=== PATIENT | male | born 1945 | race Caucasian/White ===

== ENCOUNTER 2019-12-26 09:50 | Observation (INO) | payer MEDICARE, OTHER ==
--- NOTE | 2019-12-26 10:17 | ED ---
Chest Pain HPI - General Chief Complaint: Chest Pain Stated Complaint: Chest Pain Time Seen by Provider: 12/26/19 10:02 Source: patient, RN/MD, EMS Mode of arrival: EMS Limitations: no limitations - History of Present Illness Initial Comments: 73-year-old male with history of hypertension, diabetes controlled with metformin, angina, brief smoking history for < 5 years presenting to the with recent catheterization at the [facility] in June that he described as clean presents emergency department for chief complaint of chest pain that has since subsided that began at 6 AM. Patient states this exam he woke up with chest pain he states it was a sharp constant pain in the upper chest diffusely. He states at that time there is associated shortness of breath. Non currently. Denies leg swelling or history of DVT or pulmonary embolism, history of prostate cancer in remission. Denies pain with deep inspiration. Patient states he had some jaw pain. No arm pain, no back pain no abdominal pain. Denies vomiting, nausea. Patient states when the pain persisted he took a nitroglycerin tablet and the pain went away and has not returned. But he has a slight headache. Patient has a slight headache at this time no other complaints. Patient appears well on arrival, he no diaphoretic,, (-) levign sign without distress. Given 324 of aspirin in EMS prior to arrival. Patient has retinal detachment surgery: 1 week ago - Related Data Home Medications Medication Instructions Recorded Confirmed Albuterol Inhaler [Ventolin Hfa 1 - 2 puff INHALATION RT-TID PRN 12/26/19 12/26/19 Inhaler] Ascorbic Acid [Vitamin C] 500 mg PO DAILY 12/26/19 12/26/19 Carbidopa-Levodopa 25-100 mg 1 tab PO BID 12/26/19 12/26/19 [Sinemet 25-100] Cholecalciferol [Vitamin D3 (25 5,000 unit PO DAILY 12/26/19 12/26/19 Mcg = 1000 Iu)] Cyanocobalamin (Vitamin B-12) 1,000 mcg PO DAILY 12/26/19 12/26/19 [Vitamin B-12] Diflorasone Diacetate [Psorcon] 1 applic TOPICAL BID 12/26/19 12/26/19 Econazole Nitrate [Econazole 1 applic TOPICAL DAILY 12/26/19 12/26/19 Nitrate 1%] Ferrous Gluconate 240 mg PO DAILY 12/26/19 12/26/19 Guaifenesin/Dextromethorphan 1 tab PO Q6H PRN 12/26/19 12/26/19 [Coricidin Hbp Softgel] Ibuprofen [Motrin] 800 mg PO Q8H PRN 12/26/19 12/26/19 Isosorbide Mononitrate ER [Imdur] 60 mg PO DAILY 12/26/19 12/26/19 Loperamide HCl [Imodium A-D] 2 mg PO DAILY PRN 12/26/19 12/26/19 Loperamide [Imodium] 1 mg PO DAILY 12/26/19 12/26/19 Losartan-Hctz 50-12.5 mg [Hyzaar 1 tab PO DAILY 12/26/19 12/26/19 50-12.5] Nitroglycerin Sl Tabs [Nitrostat] 0.4 mg SUBLINGUAL Q5M PRN 12/26/19 12/26/19 Pantoprazole Sodium [Protonix] 40 mg PO DAILY 12/26/19 12/26/19 Rosuvastatin Calcium [Crestor] 20 mg PO DAILY 12/26/19 12/26/19 Tamsulosin [Flomax] 0.4 mg PO DAILY 12/26/19 12/26/19 Turmeric Root Extract [Turmeric] 500 mg PO DAILY 12/26/19 12/26/19 Ubidecarenone [Co Q-10] 100 mg PO DAILY 12/26/19 12/26/19 metFORMIN HCL [Glucophage] 500 mg PO BID 12/26/19 12/26/19 prednisoLONE ACETATE [Pred Forte 1 drop RIGHT EYE TID 12/26/19 12/26/19 1%] Allergies Allergy/AdvReac Type Severity Reaction Status Date / Time atorvastatin Allergy Rash/Hives Verified 12/26/19 11:04 Iodinated Contrast Media Allergy Rash/Hives Verified 12/26/19 11:04 Review of Systems ROS Statement: Those systems with pertinent positive or pertinent negative responses have been documented in the HPI. ROS Other: All systems not noted in ROS Statement are negative. Past Medical History Past Medical History: Asthma, Diabetes Mellitus, GERD/Reflux, Hyperlipidemia, Hypertension History of Any Multi-Drug Resistant Organisms: None Reported Past Surgical History: Cholecystectomy, Heart Catheterization, Hernia Repair Additional Past Surgical History / Comment(s): R eye surgery Past Psychological History: No Psychological Hx Reported Smoking Status: Former smoker Past Alcohol Use History: Occasional Past Drug Use History: None Reported - Past Family History Father Additional Family Medical History / Comment(s): Father lived to be 95 yrs. old. He of an infection of some sort. Mother Family Medical History: Chest Pain / Angina Additional Family Medical History / Comment(s): Migraines. She of multiple organ failure at the age of 89yrs. General Exam - General Exam Comments Initial Comments: General: The patient is awake and alert, in no distress, and does not appear acutely ill. Eye: +3 mm pupils are equal, round and reactive to light, extra-ocular movements are intact. No nystagmus. There is normal conjunctiva bilaterally. No signs of icterus. Ears, nose, mouth and throat: There are moist mucous membranes and no oral lesions. Neck: The neck is supple, there is no tenderness or JVD. No nuchal rigidity Cardiovascular: There is a regular rate and rhythm. No murmur, rub or gallop is appreciated. Respiratory: Lungs are clear to auscultation, respirations are non-labored, breath sounds are equal. No wheezes, stridor, rales, or rhonchi. Gastrointestinal: Soft, non-distended, non-tender abdomen without masses or organomegaly noted. There is no rebound or guarding present. No pulsatile masses Musculoskeletal: Normal ROM, no tenderness. Strength 5/5 of the UE and LE b/l. Sensation intact of the UE and LE b/l. Radial and DP pulses equal bilaterally 2+. Neurological: A&O x 3. CN II-XII intact, There are no obvious motor or sensory deficits. Coordination appears grossly intact. Speech is normal. Skin: Skin is warm and dry and no rashes or lesions are noted. No lower extremity edema pain to palpation Psychiatric: Cooperative, appropriate mood & affect, normal judgment. Limitations: no limitations Course Vital Signs 12/26/19 12/26/19 12/26/19 09:55 13:13 14:00 Temperature 98 F 98.3 F Pulse Rate 57 L 65 65 Respiratory 16 18 18 Rate Blood Pressure 139/84 122/77 120/75 O2 Sat by Pulse 100 98 96 Oximetry Chest Pain MDM - MDM 73-year-old male presenting today for chief complaint of chest pain. Hx of cath "clean" per family in june. Patient EKG wnl. Headache after nitro this AM. Pt has no focal neurological deficits. However family was demanding,yelling for a CT brain. CT brain (-). Pain controlled with 1 dose of morphine. Patient HR lower aspect of normal. Held nitro given concern for a possibility of inferior NM. No ST elevation or depressions on 2 EKGs. Non specific changes. Patient CTA for aneurysm or pulmonary embolism.. Patient will be admitted for CP r/o. Patient remains hold in ER, but is under care of accepting IM physician who saw patient in ER. Dr Alexander agreeable to care plan. Course: pt troponin +, he is under IM care, I personally spoke with Dr. Benjamin who states he will contact cardiology and initiate heparin. Disposition Clinical Impression: Chest pain, Jaw pain, Dyspnea Disposition: ADMITTED IP TO THIS HOSP Condition: Stable Is patient prescribed a controlled substance at d/c from ED?: No Time of Disposition: 11:19 Decision to Admit Reason: Admit from EC Decision Date: 12/26/19 Decision Time: 11:19
[2019-12-26 10:21] LABS: Basophils % (A) 0 %; Eosinophils # (A) 0.2 k/uL (0-0.7); Eosinophils % (A) 2 %; HCT 39.3 % (39.0-53.0); HGB 12.5 gm/dL (13.0-17.5); Lymphocytes # (A) 1.2 k/uL (1.0-4.8); Lymphocytes % (A) 14 %; MCH 28.8 pg (25.0-35.0); MCHC 31.8 g/dL (31.0-37.0); MCV 90.7 fL (80.0-100.0); Mean Platelet Volume 7.3; Monocytes # (A) 0.6 k/uL (0-1.0); Monocytes % (A) 7 %; Neutrophils # (A) 6.4 k/uL (1.3-7.7); Neutrophils % (A) 76 %; Platelet Count 274 k/uL (150-450); RBC 4.33 m/uL (4.30-5.90); RDW 13.1 % (11.5-15.5); WBC 8.5 k/uL (3.8-10.6)
[2019-12-26 10:30] LABS: INR 0.9 (<1.2); Partial Thromboplastin Time 23.3 sec (22.0-30.0); Prothrombin Time 9.5 sec (9.0-12.0)
[2019-12-26 10:33] LABS: Calcium 9.4 mg/dL (8.4-10.2); Magnesium 1.5 mg/dL (1.6-2.3); Potassium 4.3 mmol/L (3.5-5.1); Total Bilirubin 0.3 mg/dL (0.2-1.3); Total Protein 6.4 g/dL (6.3-8.2)
--- NOTE | 2019-12-26 11:02 | XR ---
EXAMINATION TYPE: XR chest 2V DATE OF EXAM: 12/26/2019 COMPARISON: NONE HISTORY: Shortness of breath TECHNIQUE: Frontal and lateral views of the chest are obtained. FINDINGS: Scattered senescent parenchymal changes noted. Hyperinflation compatible with COPD. No evidence for infiltrate. No evidence for atelectasis. Heart size is stable. Mediastinal structures are stable and grossly unremarkable. No evidence for hilar prominence. Degenerative changes dorsal spine. IMPRESSION: 1. No evidence for acute pulmonary disease.
[2019-12-26] MEDS ORDERED: NITROGLYCERIN SL TABS 0.4 MG TAB SUBLINGUAL PRN ×2 (11:17→13:06)
[2019-12-26] MEDS ORDERED: MORPHINE SULFATE 2 MG/ML SYRINGE IVP PRN (11:30)
[2019-12-26] MEDS ORDERED: LORazepam 2 MG/ML INJ IV STA (11:33)
[2019-12-26] MEDS ORDERED: methylPREDNISolone SOD SUCCI 125 MG/2 ML VIAL IV STA (11:41)
[2019-12-26] MEDS ORDERED: FAMOTIDINE 20 MG/2 ML VIAL IV STA (11:41)
[2019-12-26] MEDS ORDERED: diphenhydrAMINE 50 MG/ML 1 ML VIAL IVP STA (11:41)
--- NOTE | 2019-12-26 12:03 | CT ---
EXAMINATION TYPE: CT brain wo con DATE OF EXAM: 12/26/2019 COMPARISON: None HISTORY: severe [place] CT DLP: 1099.[address] of the brain was performed The ventricles, basal cisterns and sulci overlying the cerebral convexities demonstrate mild enlargem ent. There is no evidence for intracranial hemorrhage or sulcal effacement. There is decreased attenuation about the periventricular white matter and deep white matter of both c erebral hemispheres, compatible with chronic small vessel ischemia. Differential diagnosis does inclu de demyelination. No mass effects are seen.No midline shift. Osseous calvarium is intact. If symptoms persist consider MRI. IMPRESSION: 1. Age related atrophic and chronic small vessel ischemic change without acute intracranial process s een at this time.
--- NOTE | 2019-12-26 12:17 | CT ---
EXAMINATION TYPE: CT angio chest DATE OF EXAM: 12/26/2019 COMPARISON: None HISTORY: cough, chest pain, SOB CT DLP: 397.3 mGycm CONTRAST: CT chest with contrast and 3D reconstruction with MIP imaging is performed with IV Contrast, patient injected with 63 mL of Isovue 370. Contrast-enhanced CT of the chest was performed through the course of the pulmonary arteries with vern g and mediastinal window settings submitted. 3D reconstruction with MIP imaging was also performed. PULMONARY ARTERIES: The pulmonary arteries and their major tributaries are patent. I do not see alix dence for sizable filling defect to suggest pulmonary embolic process. LUNGS: The lungs are clear and free of infiltrate. No evidence for atelectasis. No pulmonary nodule or mass is detected. No pleural effusion. MEDIASTINUM: Thoracic aorta is of normal caliber,however, evaluation is limited given timing of the contrast bolus. If there is concern for thoracic aortic pathology consider DONNIE. Correlate clinicall y . The heart is not enlarged. No evidence for mediastinal mass. No mediastinal lymph nodes greater than 1cm. HILAR STRUCTURES: No evidence for mass. No hilar lymph nodes greater than 1 cm. UPPER ABDOMEN: No significant abnormality is seen. IMPRESSION: 1. No evidence for Pulmonary embolism at this time.
[2019-12-26] MEDS ORDERED: guaiFENesin-DM 100-10MG/5ML 10 ML CUP PO PRN (13:06)
[2019-12-26] MEDS ORDERED: ALBUTEROL NEBULIZED 2.5 MG/3 ML INHALATION PRN (13:06)
[2019-12-26] MEDS: MAGNESIUM SULFATE-D5W PMX 1 GM in DEXTROSE/WATER 1 100ML.BAG IVPB SCH ×2 (13:29→14:23)
[2019-12-26] MEDS ORDERED: traMADol 50 MG TAB PO PRN (15:03)
--- NOTE | 2019-12-26 15:06 | P.HPIM ---
History of Present Illness 73-year-old male with known history of coronary disease and recent cardiac catheterization and stenting in [facility] month of June came in with compensative chest pain and headache. I'm unable to get much of the history f rom the patient as patient just received the Ativan and excessively drowsy goes back to sleep even before he can answer one question for me. Patient states he was having headache since yesterday and started having chest pain today because of which she came he came to ER. EKG did not show any acute ST-T wave changes. Set of troponin is negative second one is mildly elevated to 0.05, patient is b eing admitted and cardiology was consulted for rule out acute medicine syndromes and unstable angina. Patient doesn't have any fever chills was having some cough without any sputum production. Patient chest pain apparently asked for the ER physician is nonpruritic. Review of Systems REVIEW OF SYSTEMS: CONSTITUTIONAL: No fever, no malaise, no fatigue. HEENT: No recent visual problems or hearing problems. Denied any sore throat. CARDIOVASCULAR: No orthopnea, PND, no palpitations, no syncope. PULMONARY: No shortness of breath, no cough, no hemoptysis. GASTROINTESTINAL: No diarrhea, no nausea, no vomiting, no abdominal pain. NEUROLOGICAL: No headaches, no weakness, no numbness. HEMATOLOGICAL: Denies any bleeding or petechiae. GENITOURINARY: Denies any burning micturition, frequency, or urgency. MUSCULOSKELETAL/RHEUMATOLOGICAL: Denies any joint pain, swelling, or any muscle pain. ENDOCRINE: Denies any polyuria or polydipsia. The rest of the 14-point review of systems is negative. Past Medical History Past Medical History: Asthma, Diabetes Mellitus, GERD/Reflux, Hyperlipidemia, Hypertension Additional Past Medical History / Comment(s): IDDM type II, neuropathy bilateral feet, R eye retinal detachement with surgery 2 weeks ago-sleeps with eye guard in place, bronchitis, diverticular disease with lower GI bleeds/surgery, parkingosns, prostate cancer tx with proton therapy, BPH, iron anemia, arthritis bilateral knees. History of Any Multi-Drug Resistant Organisms: None Reported Past Surgical History: Cholecystectomy, Heart Catheterization, Hernia Repair Additional Past Surgical History / Comment(s): R eye surgery Past Anesthesia/Blood Transfusion Reactions: No Reported Reaction Additional Past Anesthesia/Blood Transfusion Reaction / Comment(s): Pt has received blood in past without reaction. Past Psychological History: No Psychological Hx Reported Smoking Status: Former smoker Past Alcohol Use History: Occasional Past Drug Use History: None Reported - Past Family History Father Additional Family Medical History / Comment(s): Father lived to be 95 yrs. old. He of an infection of some sort. Mother Family Medical History: Chest Pain / Angina Additional Family Medical History / Comment(s): Migraines. She of multiple organ failure at the age of 89yrs. Medications and Allergies Home Medications Medication Instructions Recorded Confirmed Type Albuterol Inhaler [Ventolin Hfa 1 - 2 puff INHALATION RT-TID PRN 12/26/19 12/26/19 History Inhaler] Ascorbic Acid [Vitamin C] 500 mg PO DAILY 12/26/19 12/26/19 History Carbidopa-Levodopa 25-100 mg 1 tab PO BID 12/26/19 12/26/19 History [Sinemet 25-100] Cholecalciferol [Vitamin D3 (25 5,000 unit PO DAILY 12/26/19 12/26/19 History Mcg = 1000 Iu)] Cyanocobalamin (Vitamin B-12) 1,000 mcg PO DAILY 12/26/19 12/26/19 History [Vitamin B-12] Diflorasone Diacetate [Psorcon] 1 applic TOPICAL BID 12/26/19 12/26/19 History Econazole Nitrate [Econazole 1 applic TOPICAL DAILY 12/26/19 12/26/19 History Nitrate 1%] Ferrous Gluconate 240 mg PO DAILY 12/26/19 12/26/19 History Guaifenesin/Dextromethorphan 1 tab PO Q6H PRN 12/26/19 12/26/19 History [Coricidin Hbp Softgel] Ibuprofen [Motrin] 800 mg PO Q8H PRN 12/26/19 12/26/19 History Isosorbide Mononitrate ER [Imdur] 60 mg PO DAILY 12/26/19 12/26/19 History Loperamide HCl [Imodium A-D] 2 mg PO DAILY PRN 12/26/19 12/26/19 History Loperamide [Imodium] 1 mg PO DAILY 12/26/19 12/26/19 History Losartan-Hctz 50-12.5 mg [Hyzaar 1 tab PO DAILY 12/26/19 12/26/19 History 50-12.5] Nitroglycerin Sl Tabs [Nitrostat] 0.4 mg SUBLINGUAL Q5M PRN 12/26/19 12/26/19 History Pantoprazole Sodium [Protonix] 40 mg PO DAILY 12/26/19 12/26/19 History Rosuvastatin Calcium [Crestor] 20 mg PO DAILY 12/26/19 12/26/19 History Tamsulosin [Flomax] 0.4 mg PO DAILY 12/26/19 12/26/19 History Turmeric Root Extract [Turmeric] 500 mg PO DAILY 12/26/19 12/26/19 History Ubidecarenone [Co Q-10] 100 mg PO DAILY 12/26/19 12/26/19 History metFORMIN HCL [Glucophage] 500 mg PO BID 12/26/19 12/26/19 History prednisoLONE ACETATE [Pred Forte 1 drop RIGHT EYE TID 12/26/19 12/26/19 History 1%] Allergies Allergy/AdvReac Type Severity Reaction Status Date / Time atorvastatin Allergy Rash/Hives Verified 12/26/19 11:04 Iodinated Contrast Media Allergy Rash/Hives Verified 12/26/19 11:04 Physical Exam Vitals: Vital Signs Temp Pulse Pulse Resp BP BP Pulse Ox 12/26/19 14:54 97.5 F L 62 16 127/74 96 12/26/19 14:00 98.3 F 65 18 120/75 96 12/26/19 13:13 65 18 122/77 98 12/26/19 09:55 98 F 57 L 16 139/84 100 Intake and Output 12/26/19 12/26/19 12/26/19 06:59 14:59 22:59 Other: Weight 86.183 kg PHYSICAL EXAMINATION: GENERAL: The patient is excessively drowsy but oriented he is drowsy because of Ativan he received, not in any acute distress. Well developed, well nourished. HEENT: Pupils are round and equally reacting to light. EOMI. No scleral icterus. No conjunctival pallor. Normocephalic, atraumatic. No pharyngeal erythema. No thyromegaly. CARDIOVASCULAR: S1 and S2 present. No murmurs, rubs, or gallops. PULMONARY: Chest is clear to auscultation, no wheezing or crackles. ABDOMEN: Soft, nontender, nondistended, normoactive bowel sounds. No palpable organomegaly. MUSCULOSKELETAL: No joint swelling or deformity. EXTREMITIES: No cyanosis, clubbing, or pedal edema. NEUROLOGICAL: Gross neurological examination did not reveal any focal deficits. SKIN: No rashes. Results CBC & Chem 7: 12/26/19 10:12 12/26/19 10:12 Labs: Abnormal Lab Results - Last 24 Hours (Table) 12/26/19 12/26/19 12/26/19 Range/Units 10:12 10:12 12:44 Hgb 12.5 L (13.0-17.5) gm/dL BUN 25 H (9-20) mg/dL Glucose 108 H (74-99) mg/dL Magnesium 1.5 L (1.6-2.3) mg/dL Troponin I 0.058 H* (0.000-0.034) ng/mL Thrombosis Risk Factor Assmnt - Choose All That Apply Any of the Below Risk Factors Present?: Yes Each Factor Represents 1 point: Obesity (BMI >25) Other Risk Factors: Yes Each Risk Factor Represents 2 Points: Age 61-74 years, Malignancy Other congenital or acquired thrombophilia - If yes, enter type in comment: No Thrombosis Risk Factor Assessment Total Risk Factor Score: 5 Thrombosis Risk Factor Assessment Level: High Risk Assessment and Plan Plan: Chest pain: Mostly atypical and we will rule out acute coronary syndromes and unstable angina repeat one more set of troponin depending on that cardiology will decide whether patient will stress test or a cardiac catheterization. -Mild acute renal failure hold off hydrochlorothiazide repeat basic metabolic profile -Hypomagnesemia magnesium will be replaced -Type 2 diabetes mellitus next and heparin gases. Infectious is -Hypertension -Hyperlipidemia -History of coronary artery disease with recent stents For above-mentioned chronic medical problems patient will be resumed on appropriate home medications.
[2019-12-26] MEDS: prednisoLONE ACETATE 1% OPHTH DROPS 5 ML BTL RIGHT EYE SCH ×2 (16:13→21:11)
[2019-12-26 16:40] LABS: Glucose,Whole Blood 128 mg/dL (75-99)
[2019-12-26] MEDS ORDERED: HEPARIN SODIUM,PORCINE 5,000 UNIT/ML 1 ML VIAL IV ONE (18:00)
[2019-12-26] MEDS ORDERED: HEPARIN SOD,PORK IN 0.45% NACL 25,000 UNIT in 0.45% NACL 1 250ML.BAG IV SCH (18:00)
[2019-12-26] MEDS ORDERED: HEPARIN SODIUM,PORCINE 5,000 UNIT/ML 1 ML VIAL IV PRN (18:00)
[2019-12-26 19:52] LABS: Basophils % (A) 0 %; Eosinophils % (A) 0 %; HCT 42.1 % (39.0-53.0); HGB 13.2 gm/dL (13.0-17.5); Lymphocytes # (A) 0.6 k/uL (1.0-4.8); Lymphocytes % (A) 5 %; MCH 29.1 pg (25.0-35.0); MCHC 31.4 g/dL (31.0-37.0); MCV 92.5 fL (80.0-100.0); Mean Platelet Volume 7.9; Monocytes # (A) 0.1 k/uL (0-1.0); Monocytes % (A) 1 %; Neutrophils # (A) 10.1 k/uL (1.3-7.7); Neutrophils % (A) 93 %; Platelet Count 308 k/uL (150-450); RBC 4.56 m/uL (4.30-5.90); RDW 13.2 % (11.5-15.5); WBC 10.9 k/uL (3.8-10.6)
[2019-12-26 20:14] LABS: INR 0.9 (<1.2); Partial Thromboplastin Time 24.1 sec (22.0-30.0); Prothrombin Time 9.7 sec (9.0-12.0)
[2019-12-26 20:14] LABS: Glucose,Whole Blood 181 mg/dL (75-99)
[2019-12-26] MEDS: CLOBETASOL PROP 0.05% CR 15GM TOPICAL SCH (21:11)
[2019-12-26] MEDS: CARBIDOPA-LEVODOPA 25-100 MG 1 EACH TAB PO SCH (21:11)
[2019-12-26] MEDS: metFORMIN 500 MG TAB PO SCH (21:11)
[2019-12-26] MEDS: LOPERAMIDE 2 MG CAP PO PRN (22:19)
[2019-12-27] MEDS: PANTOPRAZOLE 40 MG TABLET PO SCH (06:15)
[2019-12-27 06:20] LABS: Glucose,Whole Blood 128 mg/dL (75-99)
[2019-12-27 08:19] LABS: Basophils % (A) 0 %; Eosinophils % (A) 0 %; HCT 42.8 % (39.0-53.0); HGB 13.4 gm/dL (13.0-17.5); Lymphocytes # (A) 1.1 k/uL (1.0-4.8); Lymphocytes % (A) 6 %; MCH 28.9 pg (25.0-35.0); MCHC 31.3 g/dL (31.0-37.0); MCV 92.4 fL (80.0-100.0); Mean Platelet Volume 7.5; Monocytes # (A) 0.6 k/uL (0-1.0); Monocytes % (A) 3 %; Neutrophils # (A) 17.6 k/uL (1.3-7.7); Neutrophils % (A) 90 %; Platelet Count 343 k/uL (150-450); RBC 4.63 m/uL (4.30-5.90); RDW 13.2 % (11.5-15.5); WBC 19.4 k/uL (3.8-10.6)
[2019-12-27] MEDS ORDERED: LOSARTAN-HCTZ 50-12.5 MG 1 EACH TAB PO SCH (09:00)
[2019-12-27 09:05] LABS: Calcium 9.7 mg/dL (8.4-10.2); Magnesium 1.7 mg/dL (1.6-2.3); Potassium 4.5 mmol/L (3.5-5.1)
[2019-12-27] MEDS: TAMSULOSIN 0.4 MG CAP.ER.24H PO SCH (09:48)
[2019-12-27] MEDS: ASPIRIN 325 MG TAB PO SCH (09:48)
[2019-12-27] MEDS: ISOSORBIDE MONONITRATE ER 60 MG TAB.ER.24H PO SCH (09:48)
[2019-12-27] MEDS: CARBIDOPA-LEVODOPA 25-100 MG 1 EACH TAB PO SCH ×2 (09:49→20:50)
[2019-12-27] MEDS: LOSARTAN 50 MG TAB PO SCH (09:49)
[2019-12-27] MEDS: CLOBETASOL PROP 0.05% CR 15GM TOPICAL SCH ×2 (09:51→20:48)
[2019-12-27] MEDS: metFORMIN 500 MG TAB PO SCH (09:51)
[2019-12-27] MEDS: CLOTRIMAZOLE 1% CREAM 15 GM TUBE TOPICAL SCH (09:52)
[2019-12-27] MEDS: prednisoLONE ACETATE 1% OPHTH DROPS 5 ML BTL RIGHT EYE SCH ×3 (09:52→20:50)
--- NOTE | 2019-12-27 10:02 | P.CRDCN ---
History of Present Illness Consult date: 12/27/19 Chief complaint: Chest pain History of present illness: This is a very pleasant 73-year-old gentleman who does not follow-up with any nuclear medical tech here in this area but he does have a nuclear medical tech at [facility] with a past medical history significant for hypertension and dyslipidemia and also history of TIA in the past resented to the hospital complaining of chest discomfort. The patient underwent a heart catheterization according to him in July 2019 at [facility] and he was diagnosed was mild nonobstructive coronary artery disease according to him. He was in his usual state of health until yesterday when he was sleeping and woke up complaining of chest discomfort. He did have a total of 2 episodes of chest discomfort with about 20 minutes in between. He described the discomfort as a tightness across the chest associated with pain in the back of the neck as well as associated with cold sweats. Each episode lasted about 15 minutes. Currently he is chest pain-free. He was admitted to the hospital and started on IV heparin. The EKG showed sinus rhythm with nonspecific ST or T-wave abnormalities. The cardiac enzymes were checked and came in to be abnormal and consistent with acute coronary event. I had a long discussion with him as well as his and I advised the patient to undergo a heart catheterization for further evaluation and rule out severe underlying coronary artery disease. The patient and his would like to think about it and get back to me. Meanwhile I am going to obtain an echocardiogram was Doppler. Also I'm going to start the patient on metoprolol at 12.5 mg by mouth twice a day to control the blood pressure as well as the heart rate. We'll continue following up with the patient Past Medical History Past Medical History: Asthma, Diabetes Mellitus, GERD/Reflux, Hyperlipidemia, Hypertension Additional Past Medical History / Comment(s): IDDM type II, neuropathy bilateral feet, R eye retinal detachement with surgery 2 weeks ago-sleeps with eye guard in place, bronchitis, diverticular disease with lower GI bleeds/surgery, parkingosns, prostate cancer tx with proton therapy, BPH, iron anemia, arthritis bilateral knees. History of Any Multi-Drug Resistant Organisms: None Reported Past Surgical History: Cholecystectomy, Heart Catheterization, Hernia Repair Additional Past Surgical History / Comment(s): R eye surgery Past Anesthesia/Blood Transfusion Reactions: No Reported Reaction Additional Past Anesthesia/Blood Transfusion Reaction / Comment(s): Pt has received blood in past without reaction. Past Psychological History: No Psychological Hx Reported Smoking Status: Former smoker Past Alcohol Use History: Occasional Past Drug Use History: None Reported - Past Family History Father Additional Family Medical History / Comment(s): Father lived to be 95 yrs. old. He of an infection of some sort. Mother Family Medical History: Chest Pain / Angina Additional Family Medical History / Comment(s): Migraines. She of multiple organ failure at the age of 89yrs. Medications and Allergies Home Medications Medication Instructions Recorded Confirmed Type Albuterol Inhaler [Ventolin Hfa 1 - 2 puff INHALATION RT-TID PRN 12/26/19 12/26/19 History Inhaler] Ascorbic Acid [Vitamin C] 500 mg PO DAILY 12/26/19 12/26/19 History Carbidopa-Levodopa 25-100 mg 1 tab PO BID 12/26/19 12/26/19 History [Sinemet 25-100] Cholecalciferol [Vitamin D3 (25 5,000 unit PO DAILY 12/26/19 12/26/19 History Mcg = 1000 Iu)] Cyanocobalamin (Vitamin B-12) 1,000 mcg PO DAILY 12/26/19 12/26/19 History [Vitamin B-12] Diflorasone Diacetate [Psorcon] 1 applic TOPICAL BID 12/26/19 12/26/19 History Econazole Nitrate [Econazole 1 applic TOPICAL DAILY 12/26/19 12/26/19 History Nitrate 1%] Ferrous Gluconate 240 mg PO DAILY 12/26/19 12/26/19 History Guaifenesin/Dextromethorphan 1 tab PO Q6H PRN 12/26/19 12/26/19 History [Coricidin Hbp Softgel] Ibuprofen [Motrin] 800 mg PO Q8H PRN 12/26/19 12/26/19 History Isosorbide Mononitrate ER [Imdur] 60 mg PO DAILY 12/26/19 12/26/19 History Loperamide HCl [Imodium A-D] 2 mg PO DAILY PRN 12/26/19 12/26/19 History Loperamide [Imodium] 1 mg PO DAILY 12/26/19 12/26/19 History Losartan-Hctz 50-12.5 mg [Hyzaar 1 tab PO DAILY 12/26/19 12/26/19 History 50-12.5] Nitroglycerin Sl Tabs [Nitrostat] 0.4 mg SUBLINGUAL Q5M PRN 12/26/19 12/26/19 History Pantoprazole Sodium [Protonix] 40 mg PO DAILY 12/26/19 12/26/19 History Rosuvastatin Calcium [Crestor] 20 mg PO DAILY 12/26/19 12/26/19 History Tamsulosin [Flomax] 0.4 mg PO DAILY 12/26/19 12/26/19 History Turmeric Root Extract [Turmeric] 500 mg PO DAILY 12/26/19 12/26/19 History Ubidecarenone [Co Q-10] 100 mg PO DAILY 12/26/19 12/26/19 History metFORMIN HCL [Glucophage] 500 mg PO BID 12/26/19 12/26/19 History prednisoLONE ACETATE [Pred Forte 1 drop RIGHT EYE TID 12/26/19 12/26/19 History 1%] Allergies Allergy/AdvReac Type Severity Reaction Status Date / Time atorvastatin Allergy Rash/Hives Verified 12/26/19 11:04 Iodinated Contrast Media Allergy Rash/Hives Verified 12/26/19 11:04 Physical Exam Vitals: Vital Signs Temp Pulse Pulse Resp BP BP Pulse Ox 12/27/19 08:48 20 12/27/19 08:15 97.4 F L 74 20 156/68 100 12/27/19 03:00 97.4 F L 69 18 156/78 96 12/26/19 21:00 98 F 71 16 124/75 95 12/26/19 15:26 96 12/26/19 15:00 16 12/26/19 14:54 97.5 F L 62 16 127/74 96 12/26/19 14:00 98.3 F 65 18 120/75 96 12/26/19 13:13 65 18 122/77 98 Intake and Output 12/26/19 12/27/19 12/27/19 22:59 06:59 14:59 Intake Total 63.981 92.596 Balance 63.981 92.596 Intake: Intake, IV Titration 63.981 92.596 Amount Heparin Sod,Pork in 0.45% 63.981 92.596 NaCl 25,000 unit In 0.45 % NaCl 1 250ml.bag @ 11.6 UNITS/KG/HR 9.997 mls/hr IV .Q24H [facility] Rx#: [id number] Other: Voiding Method Toilet Toilet Toilet # Voids 1 2 - Constitutional General appearance: no acute distress - Cardiovascular Rhythm: regular Heart sounds: normal: S1, S2 Results 12/27/19 08:01 12/27/19 08:01 Cardiac Enzymes 12/26/19 12/26/19 12/26/19 Range/Units 10:12 10:12 12:44 AST 24 (17-59) U/L Troponin I <0.012 0.058 H* (0.000-0.034) ng/mL 12/26/19 Range/Units 16:24 AST (17-59) U/L Troponin I 0.345 H* (0.000-0.034) ng/mL Coagulation 12/26/19 12/26/19 12/27/19 Range/Units 10:12 18:15 00:25 PT 9.5 9.7 (9.0-12.0) sec APTT 23.3 24.1 39.6 H (22.0-30.0) sec 12/27/19 Range/Units 08:01 PT (9.0-12.0) sec APTT 42.7 H (22.0-30.0) sec Lipids 12/27/19 Range/Units 08:01 Triglycerides 93 (<150) mg/dL Cholesterol 128 (<200) mg/dL HDL Cholesterol 54 (40-60) mg/dL CBC 12/26/19 12/26/19 12/27/19 Range/Units 10:12 18:15 08:01 WBC 8.5 10.9 H 19.4 H (3.8-10.6) k/uL RBC 4.33 4.56 4.63 (4.30-5.90) m/uL Hgb 12.5 L 13.2 13.4 (13.0-17.5) gm/dL Hct 39.3 42.1 42.8 (39.0-53.0) % Plt Count 274 308 343 (150-450) k/uL Comprehensive Metabolic Panel 12/26/19 12/27/19 Range/Units 10:12 08:01 Sodium 141 139 (137-145) mmol/L Potassium 4.3 4.5 (3.5-5.1) mmol/L Chloride 103 103 (98-107) mmol/L Carbon Dioxide 25 26 (22-30) mmol/L BUN 25 H 27 H (9-20) mg/dL Creatinine 1.19 1.18 (0.66-1.25) mg/dL Glucose 108 H 143 H (74-99) mg/dL Calcium 9.4 9.7 (8.4-10.2) mg/dL AST 24 (17-59) U/L ALT 11 (4-49) U/L Alkaline Phosphatase 76 (38-126) U/L Total Protein 6.4 (6.3-8.2) g/dL Albumin 4.0 (3.5-5.0) g/dL Current Medications Generic Name Dose Route Start Last Admin Trade Name Freq PRN Reason Stop Dose Admin Albuterol Sulfate 2.5 mg 12/26/19 13:06 Ventolin Nebulized INHALATION RT-TID PRN Shortness Of Breath Aspirin 325 mg 12/27/19 09:00 12/27/19 09:48 Aspirin PO 325 mg DAILY [facility] Administration Carbidopa/Levodopa 1 each 12/26/19 21:00 12/27/19 09:49 Sinemet 25-100 PO 1 each BID [facility] Administration Clobetasol Propionate 1 applic 12/26/19 21:00 12/27/19 09:51 Temovate TOPICAL Not Given BID [facility] Clotrimazole 1 applic 12/27/19 09:00 12/27/19 09:52 Lotrimin Cream TOPICAL Not Given DAILY [facility] Guaifenesin/Dextromethorphan 10 ml 12/26/19 13:06 Robitussin Dm PO Q6H PRN Cold Symptoms Heparin Sodium (Porcine) 0 unit 12/26/19 18:00 12/27/19 01:20 Heparin IV 2,150 unit PER PROTOCOL PRN Administration Low PTT Protocol Heparin Sodium/Sodium Chloride 250 mls @ 9.997 mls/hr 12/26/19 18:00 12/27/19 09:07 25,000 unit/ Sodium Chloride IV 15.6 units/kg/hr .Q24H [facility] 13.445 mls/hr Titration Protocol 11.6 UNITS/KG/HR Isosorbide Mononitrate 60 mg 08/18/20 09:00 12/27/19 09:48 Imdur PO 60 mg DAILY [facility] Administration Loperamide HCl 2 mg 12/26/19 13:06 12/26/19 22:19 Imodium PO 2 mg DAILY PRN Administration Loose Stool Losartan Potassium 50 mg 12/27/19 09:00 12/27/19 09:49 Cozaar PO 50 mg DAILY [facility] Administration Metformin HCl 500 mg 12/26/19 21:00 12/27/19 09:51 Glucophage PO Not Given BID [facility] Metoprolol Tartrate 12.5 mg 12/27/19 21:00 Lopressor PO BID [facility] Nitroglycerin 0.4 mg 12/26/19 13:06 Nitrostat SUBLINGUAL Q5M PRN Chest Pain Patient's Own Med ( 20 mg 12/27/19 09:00 Rosuvastatin Calcium PO [Crestor] 20 Mg) DAILY [facility] Pantoprazole Sodium 40 mg 12/27/19 07:30 12/27/19 06:15 Protonix PO 40 mg AC-[id number] [facility] Administration Prednisolone Acetate 1 drops 12/26/19 16:00 12/27/19 09:52 Pred Forte 1% RIGHT EYE 1 drops TID [facility] Administration Tamsulosin HCl 0.4 mg 12/27/19 09:00 12/27/19 09:48 Flomax PO 0.4 mg DAILY [facility] Administration Tramadol HCl 50 mg 12/26/19 15:03 Ultram PO QID PRN Pain/Discomfort Intake and Output 12/26/19 12/27/19 12/27/19 22:59 06:59 14:59 Intake Total 63.981 92.596 Balance 63.981 92.596 Intake: Intake, IV Titration 63.981 92.596 Amount Heparin Sod,Pork in 0.45% 63.981 92.596 NaCl 25,000 unit In 0.45 % NaCl 1 250ml.bag @ 11.6 UNITS/KG/HR 9.997 mls/hr IV .Q24H [facility] Rx#: [id number] Other: Voiding Method Toilet Toilet Toilet # Voids 1 2 12/27/19 08:01 12/27/19 08:01 Assessment and Plan Assessment: Assessment #1 acute non-ST deviation myocardial infarction Plan #1 continue the current medical regimen #2 add metoprolol to the current medical regimen #3 obtain an echocardiogram was Doppler #4 follow-up with the patient #5 I advised proceeding with coronary angiogram
[2019-12-27] MEDS ORDERED: methylPREDNISolone SOD SUCCI 125 MG/2 ML VIAL IV STA (10:21)
[2019-12-27] MEDS ORDERED: diphenhydrAMINE 50 MG/ML 1 ML VIAL IVP STA (10:21)
[2019-12-27] MEDS ORDERED: methylPREDNISolone SOD SUCCI 125 MG/2 ML VIAL ONE (10:32)
[2019-12-27] MEDS ORDERED: LIDOCAINE 1% INJ 10MG/ML (20 ML MDV) ONE (10:32)
[2019-12-27] MEDS ORDERED: diphenhydrAMINE 50 MG/ML 1 ML VIAL ONE (10:32)
[2019-12-27] MEDS ORDERED: VERAPAMIL 2.5 MG/ML 2 ML AMP ONE (10:32)
[2019-12-27] MEDS ORDERED: fentaNYL (PF) 50 MCG/ML 2 ML AMP ONE (10:33)
[2019-12-27] MEDS ORDERED: methylPREDNISolone SOD SUCCI 125 MG/2 ML VIAL IVP ONE (10:40)
[2019-12-27] MEDS ORDERED: diphenhydrAMINE 50 MG/ML 1 ML VIAL IVP ONE (10:40)
[2019-12-27] MEDS ORDERED: LIDOCAINE 1% INJ 10MG/ML (20 ML MDV) SQ ONE (10:48)
[2019-12-27] MEDS ORDERED: fentaNYL (PF) 50 MCG/ML 2 ML AMP IVP ONE (10:49)
[2019-12-27] MEDS ORDERED: MIDAZOLAM 2 MG/2 ML VIAL IVP ONE (10:50)
[2019-12-27] MEDS: VERAPAMIL SYRINGE (5 MG/10 ML) INTRAARTER ONE ×2 (10:50→10:58)
[2019-12-27] MEDS ORDERED: SODIUM CHLORIDE 0.9% 1,000 ML IV ONE (10:53)
[2019-12-27] MEDS ORDERED: IOPAMIDOL-370 125ML BTL INJ ONE (10:58)
[2019-12-27] MEDS ORDERED: RX INFO: IV CONTRAST WAS GIVEN 1 EACH MISC MISCELLANE PRN (11:04)
[2019-12-27] MEDS ORDERED: SODIUM CHLORIDE 0.9% 1,000 ML IV SCH (11:15)
[2019-12-27] MEDS: ROSUVASTATIN CALCIUM 20 MG PO SCH (11:22)
--- NOTE | 2019-12-27 11:37 | CC ---
CARDIAC CATHETERIZATION REPORT DATE OF SERVICE: December 27, 2019 PERFORMING PHYSICIAN: Wilman Abarca MD. PROCEDURE PERFORMED: Selective right and left coronary angiogram. INDICATION: This is a very pleasant 73-year-old gentleman with hypertension and dyslipidemia who was admitted to the hospital with chest discomfort and ruled in for acute non-ST- elevation myocardial infarction. Because of that, a heart catheterization was advised. APPROACH: Right radial artery. COMPLICATION: None. LEVEL OF SEDATION: Moderate with sedation length of 10 minutes. PROCEDURE DESCRIPTION: After obtaining informed consent, the patient was brought to the cardiac casting house laborer. The right radial artery was cannulated using micropuncture technique and a micropuncture wire passed easily. Then, I placed a 6-Kiswahili sheath in the right radial artery. After that, I gave the patient 2 mg of verapamil IA. Selective right and left coronary angiogram performed using JR4 and JL3.5 catheters. Left heart catheterization was not performed. SELECTIVE CORONARY ANGIOGRAM: 1. The right coronary artery is a large caliber vessel. It is a dominant vessel. It is angiographically normal. It distally bifurcates into PDA and PLV branches both appeared to be angiographically normal. 2. The left main is angiographically normal. Bifurcates into LCX and LAD. 3. The LCX is a large caliber vessel and nondominant vessel. The LCX appeared to be angiographically normal. It gives rise into multiple obtuse marginal branches, they all appeared to have mild disease only. 4. The LAD is a large caliber vessel. It does have mild disease only. It gives rise into a large diagonal branch which has intermediate disease, appeared to be in the range of 50% only. CONCLUSION: 1. Intermediate disease involving a large first diagonal branch of the LAD appeared to be in the range of 50% only. POSTPROCEDURE MANAGEMENT: 1. Aggressive cholesterol control. 2. Anti-platelet medications. 3. Follow up with the patient. MMODL / IJN: [id number] /
[2019-12-27 11:39] LABS: Glucose,Whole Blood 139 mg/dL (75-99)
[2019-12-27 13:37] VITALS: BMI 28.8
--- NOTE | 2019-12-27 15:12 | P.PN ---
Subjective Patient is admitted for chest pain had minimally elevated troponins underwent cardiac catheterization which showed around the 50% stenosis of first diagonal branch of LAD. No stenting was done. Medical management was advised Constitutional: Denied any fatigue denied any fever. Cardio vascular: denied any chest pain, palpitations Gastrointestinal denied any nausea vomiting Pulmonary: Denied any shortness of breath cough Neurologic denied any new focal deficits All inpatient medications were reviewed and appropriate changes in these medicat ions as dictated in the interval history and assessment and plan. Objective - Vital Signs Vital signs: Vital Signs Temp 97.4 F L 12/27/19 08:15 Pulse 81 12/27/19 14:11 Resp 16 12/27/19 14:11 BP 115/54 12/27/19 14:11 Pulse Ox 93 L 12/27/19 14:11 Intake & Output 12/26/19 12/27/19 12/27/19 18:59 06:59 18:59 Intake Total 63.981 658.730 Output Total 200 Balance 63.981 458.730 Weight 86.183 kg 86.183 kg Intake: IV 250 Sodium Chloride 0.9% 1, 200 000 ml @ 0 mls/hr IV .[facility] Rx#:[id number] Intake, IV Titration 63.981 108.730 Amount Heparin Sod,Pork in 0.45% 63.981 108.730 NaCl 25,000 unit In 0.45 % NaCl 1 250ml.bag @ 11.6 UNITS/KG/HR 9.997 mls/hr IV .Q24H [facility] Rx#: [id number] Oral 300 Output: Urine 200 Other: Voiding Method Toilet Toilet Toilet # Voids 2 - Exam PHYSICAL EXAMINATION: GENERAL: The patient is alert and oriented x3, not in any acute distress. Well developed, well nourished. HEENT: Pupils are round and equally reacting to light. EOMI. No scleral icterus. No conjunctival pallor. Normocephalic, atraumatic. No pharyngeal erythema. No thyromegaly. CARDIOVASCULAR: S1 and S2 present. No murmurs, rubs, or gallops. PULMONARY: Chest is clear to auscultation, no wheezing or crackles. ABDOMEN: Soft, nontender, nondistended, normoactive bowel sounds. No palpable organomegaly. MUSCULOSKELETAL: No joint swelling or deformity. EXTREMITIES: No cyanosis, clubbing, or pedal edema. NEUROLOGICAL: Gross neurological examination did not reveal any focal deficits. SKIN: No rashes. - Labs CBC & Chem 7: 12/27/19 08:12/27/19 08:01 Labs: Abnormal Lab Results - Last 24 Hours (Table) 12/26/19 12/26/19 12/26/19 Range/Units 16:24 16:32 18:15 WBC 10.9 H (3.8-10.6) k/uL Neutrophils # 10.1 H (1.3-7.7) k/uL Lymphocytes # 0.6 L (1.0-4.8) k/uL APTT (22.0-30.0) sec BUN (9-20) mg/dL Glucose (74-99) mg/dL POC Glucose (mg/dL) 128 H (75-99) mg/dL Troponin I 0.345 H* (0.000-0.034) ng/mL 12/26/19 12/27/19 12/27/19 Range/Units 20:03 00:25 06:14 WBC (3.8-10.6) k/uL Neutrophils # (1.3-7.7) k/uL Lymphocytes # (1.0-4.8) k/uL APTT 39.6 H (22.0-30.0) sec BUN (9-20) mg/dL Glucose (74-99) mg/dL POC Glucose (mg/dL) 181 H 128 H (75-99) mg/dL Troponin I (0.000-0.034) ng/mL 12/27/19 12/27/19 12/27/19 Range/Units 08:01 08:01 08:01 WBC 19.4 H (3.8-10.6) k/uL Neutrophils # 17.6 H (1.3-7.7) k/uL Lymphocytes # (1.0-4.8) k/uL APTT 42.7 H (22.0-30.0) sec BUN 27 H (9-20) mg/dL Glucose 143 H (74-99) mg/dL POC Glucose (mg/dL) (75-99) mg/dL Troponin I (0.000-0.034) ng/mL 08/18/20 Range/Units 11:37 WBC (3.8-10.6) k/uL Neutrophils # (1.3-7.7) k/uL Lymphocytes # (1.0-4.8) k/uL APTT (22.0-30.0) sec BUN (9-20) mg/dL Glucose (74-99) mg/dL POC Glucose (mg/dL) 139 H (75-99) mg/dL Troponin I (0.000-0.034) ng/mL Assessment and Plan Plan: Possible acute non-ST elevation microinfarction: Cardiac catheterization results as mentioned above continue with medical management. There is 50% stenosis in one of the branches of LAD. No stenting was done -Mild acute renal failure antibiotic to hold off on hydrochlorothiazide -Hypomagnesemia magnesium was replaced -Type 2 diabetes mellitus -Hypertension -Hyperlipidemia -History of coronary artery disease with recent stents For above-mentioned chronic medical problems patient will be resumed on appropriate home medications.
[2019-12-27 16:36] LABS: Glucose,Whole Blood 216 mg/dL (75-99)
[2019-12-27] MEDS: INSULIN ASPART (NovoLOG) 100 UNIT/ML VIAL SQ SCH (17:03)
[2019-12-27 20:39] LABS: Glucose,Whole Blood 160 mg/dL (75-99)
[2019-12-27] MEDS: METOPROLOL TARTRATE 12.5 MG TAB PO SCH (20:50)
[2019-12-28 06:22] LABS: Glucose,Whole Blood 138 mg/dL (75-99)
[2019-12-28] MEDS: INSULIN ASPART (NovoLOG) 100 UNIT/ML VIAL SQ SCH (06:29)
[2019-12-28] MEDS: PANTOPRAZOLE 40 MG TABLET PO SCH (06:30)
[2019-12-28 08:01] LABS: Basophils % (A) 0 %; Eosinophils % (A) 0 %; HCT 38.6 % (39.0-53.0); HGB 12.4 gm/dL (13.0-17.5); Lymphocytes % (A) 5 %; MCH 29.6 pg (25.0-35.0); MCHC 32.1 g/dL (31.0-37.0); MCV 92.3 fL (80.0-100.0); Mean Platelet Volume 7.8; Monocytes % (A) 5 %; Neutrophils # (A) 19.8 k/uL (1.3-7.7); Neutrophils % (A) 90 %; Platelet Count 288 k/uL (150-450); RBC 4.18 m/uL (4.30-5.90); RDW 13.6 % (11.5-15.5)
[2019-12-28 08:06] VITALS: RESP 16
[2019-12-28 08:16] VITALS: BP 142/71; PULSE 64; TEMP 97.4
[2019-12-28] MEDS: prednisoLONE ACETATE 1% OPHTH DROPS 5 ML BTL RIGHT EYE SCH (09:00)
[2019-12-28] MEDS: ISOSORBIDE MONONITRATE ER 60 MG TAB.ER.24H PO SCH (09:01)
[2019-12-28] MEDS: METOPROLOL TARTRATE 12.5 MG TAB PO SCH (09:01)
[2019-12-28] MEDS: LOPERAMIDE 2 MG CAP PO PRN (09:01)
[2019-12-28] MEDS: ASPIRIN 325 MG TAB PO SCH (09:01)
[2019-12-28] MEDS: TAMSULOSIN 0.4 MG CAP.ER.24H PO SCH (09:01)
[2019-12-28] MEDS: CARBIDOPA-LEVODOPA 25-100 MG 1 EACH TAB PO SCH (09:01)
[2019-12-28] MEDS: LOSARTAN 50 MG TAB PO SCH (09:01)
[2019-12-28] MEDS: ROSUVASTATIN CALCIUM 20 MG PO SCH (09:04)
[2019-12-28] MEDS: CLOTRIMAZOLE 1% CREAM 15 GM TUBE TOPICAL SCH (09:04)
[2019-12-28] MEDS: CLOBETASOL PROP 0.05% CR 15GM TOPICAL SCH (09:04)
--- NOTE | 2019-12-28 09:37 | P.PN ---
Subjective Progress Note Date: 12/28/19 Principal diagnosis: This is a very pleasant 73-year-old gentleman who does not follow-up with any pharmaceutical botanist here in this area but he does have a pharmaceutical botanist at [facility] with a past medical history significant for hypertension and dyslipidemia and also history of TIA in the past resented to the hospital complaining of chest discomfort. The patient underwent a heart catheterization according to him in July 2019 at [facility] and he was diagnosed was mild n onobstructive coronary artery disease according to him. He was in his usual state of health until yesterday when he was sleeping and woke up complaining of chest discomfort. He did have a total of 2 episodes of chest discomfort with about 20 minutes in between. He described the discomfort as a tightness across the chest associated with pain in the back of the neck as well as associated with cold sweats. Each episode lasted about 15 minutes. Currently he is chest pain-free. He was admitted to the hospital and started on IV heparin. The EKG showed sinus rhythm with nonspecific ST or T-wave abnormalities. The cardiac enzymes were checked and came in to be abnormal and consistent with acute coronary event. The patient was seen today. He underwent heart catheterization yesterday and that revealed intermediate disease involving the diagonal branch of the LAD and maximize medical treatment was advised. When he was seen today he seems to be is symptomatically from the cardiovascular standpoint of view. From the cardiac standpoint, he can be discharged home and follow-up with his pharmaceutical botanist at [facility] Objective - Vital Signs Vital signs: Vital Signs Temp 97.4 F L 12/28/19 08:11 Pulse 64 12/28/19 08:11 Resp 16 12/28/19 08:11 BP 142/71 12/28/19 08:11 Pulse Ox 94 L 12/28/19 08:11 Intake & Output 12/27/19 12/28/19 12/28/19 18:59 06:59 18:59 Intake Total 1273.730 240 Output Total 200 Balance 1073.730 240 Weight 86.183 kg Intake: IV 625 Sodium Chloride 0.9% 1, 200 000 ml @ 0 mls/hr IV .[facility] Rx#:[id number] Sodium Chloride 0.9% 1, 375 000 ml @ 75 mls/hr IV . [id number] [facility] Rx#:[id number] Intake, IV Titration 108.730 Amount Heparin Sod,Pork in 0.45% 108.730 NaCl 25,000 unit In 0.45 % NaCl 1 250ml.bag @ 11.6 UNITS/KG/HR 9.997 mls/hr IV .Q24H [facility] Rx#: [id number] Oral 540 240 Output: Urine 200 Other: Voiding Method Toilet # Voids 1 1 # Bowel Movements 1 - Constitutional General appearance: Present: no acute distress - Respiratory Respiratory: bilateral: CTA - Cardiovascular Rhythm: regular Heart sounds: normal: S1, S2 - Labs CBC & Chem 7: 12/28/19 07:02 12/27/19 08:01 Labs: Abnormal Lab Results - Last 24 Hours (Table) 12/27/19 12/27/19 12/27/19 Range/Units 11:37 16:33 20:32 WBC (3.8-10.6) k/uL RBC (4.30-5.90) m/uL Hgb (13.0-17.5) gm/dL Hct (39.0-53.0) % Neutrophils # (1.3-7.7) k/uL POC Glucose (mg/dL) 139 H 216 H 160 H (75-99) mg/dL 12/28/19 12/28/19 Range/Units 06:20 07:02 WBC 22.0 H (3.8-10.6) k/uL RBC 4.18 L (4.30-5.90) m/uL Hgb 12.4 L (13.0-17.5) gm/dL Hct 38.6 L (39.0-53.0) % Neutrophils # 19.8 H (1.3-7.7) k/uL POC Glucose (mg/dL) 138 H (75-99) mg/dL Assessment and Plan Assessment: Assessment #1 acute non-ST deviation myocardial infarction #2 status post heart catheterization with intermediate disease of the LAD #3 multiple risk factors Plan #1 the patient can be discharged home #2 continue the current medical regimen. He is on maximize medical treatment #3 follow-up with his pharmaceutical botanist
--- NOTE | 2019-12-28 13:25 | P.DS ---
Providers Date of admission: 12/26/19 11:28 Attending physician: Gunnar Lowe Consults: 12/26/19 11:18 Consult Physician Urgent Consulting Provider: Steven Church Consult Reason/Comments: CP r/o Do you want consulting provider notified?: Yes, Notify in am Primary care physician: Sukumar Joshualarisa [facility] Course: Patient is admitted for chest pain had minimally elevated troponins underwent ca rdiac catheterization which showed around the 50% stenosis of first diagonal branch of LAD. No stenting was done. Medical management was advised. 12/28/2019 No overnight events patient is feeling well and patient is cleared by cardiology to be discharged and patient with discharged on same home medications except for addition of the of beta florentino and aspirin. PHYSICAL EXAMINATION: GENERAL: The patient is alert and oriented x3, not in any acute distress. Well developed, well nourished. HEENT: Pupils are round and equally reacting to light. EOMI. No scleral icterus. No conjunctival pallor. Normocephalic, atraumatic. No pharyngeal erythema. No thyromegaly. CARDIOVASCULAR: S1 and S2 present. No murmurs, rubs, or gallops. PULMONARY: Chest is clear to auscultation, no wheezing or crackles. ABDOMEN: Soft, nontender, nondistended, normoactive bowel sounds. No palpable organomegaly. MUSCULOSKELETAL: No joint swelling or deformity. EXTREMITIES: No cyanosis, clubbing, or pedal edema. NEUROLOGICAL: Gross neurological examination did not reveal any focal deficits. SKIN: No rashes. Assessment and Plan Plan: Possible acute non-ST elevation microinfarction: Cardiac catheterization results as mentioned above continue with medical management. There is 50% stenosis in one of the branches of LAD. No stenting was done -Mild acute renal failure antibiotic to hold off on hydrochlorothiazide -Hypomagnesemia magnesium was replaced -Type 2 diabetes mellitus -Hypertension -Hyperlipidemia -History of coronary artery disease with recent stents Patient Condition at Discharge: Stable Plan - Discharge Summary Discharge Rx Participant: No New Discharge Prescriptions: New Aspirin 81 mg PO DAILY #30 chewable Metoprolol Tartrate [Lopressor] 12.5 mg PO BID #60 tab Continue Tamsulosin [Flomax] 0.4 mg PO DAILY Pantoprazole Sodium [Protonix] 40 mg PO DAILY Nitroglycerin Sl Tabs [Nitrostat] 0.4 mg SUBLINGUAL Q5M PRN PRN Reason: Chest Pain Losartan-Hctz 50-12.5 mg [Hyzaar 50-12.5] 1 tab PO DAILY metFORMIN HCL [Glucophage] 500 mg PO BID Loperamide [Imodium] 1 mg PO DAILY Ferrous Gluconate 240 mg PO DAILY Econazole Nitrate [Econazole Nitrate 1%] 1 applic TOPICAL DAILY Diflorasone Diacetate [Psorcon] 1 applic TOPICAL BID Ubidecarenone [Co Q-10] 100 mg PO DAILY Carbidopa-Levodopa 25-100 mg [Sinemet 25-100 mg] 1 tab PO BID Ascorbic Acid [Vitamin C] 500 mg PO DAILY Albuterol Inhaler [Ventolin Hfa Inhaler] 1 - 2 puff INHALATION RT-TID PRN PRN Reason: Shortness Of Breath Turmeric Root Extract [Turmeric] 500 mg PO DAILY Ibuprofen [Motrin] 800 mg PO Q8H PRN PRN Reason: Pain prednisoLONE ACETATE [Pred Forte 1%] 1 drop RIGHT EYE TID Cholecalciferol [Vitamin D3 (25 Mcg = 1000 Iu)] 5,000 unit PO DAILY Guaifenesin/Dextromethorphan [Coricidin Hbp Chest Sai-Cough] 1 tab PO Q6H PRN PRN Reason: Cold Symptoms Rosuvastatin Calcium [Crestor] 20 mg PO DAILY Isosorbide Mononitrate ER [Imdur] 60 mg PO DAILY Cyanocobalamin (Vitamin B-12) [Vitamin B-12] 1,000 mcg PO DAILY Loperamide HCl [Imodium A-D] 2 mg PO DAILY PRN PRN Reason: Loose Stool Discharge Medication List Albuterol Inhaler [Ventolin Hfa Inhaler] 1 - 2 puff INHALATION RT-TID PRN 12/26/19 [History] Ascorbic Acid [Vitamin C] 500 mg PO DAILY 12/26/19 [History] Carbidopa-Levodopa 25-100 mg [Sinemet 25-100 mg] 1 tab PO BID 12/26/19 [History] Cholecalciferol [Vitamin D3 (25 Mcg = 1000 Iu)] 5,000 unit PO DAILY 12/26/19 [History] Cyanocobalamin (Vitamin B-12) [Vitamin B-12] 1,000 mcg PO DAILY 12/26/19 [History] Diflorasone Diacetate [Psorcon] 1 applic TOPICAL BID 12/26/19 [History] Econazole Nitrate [Econazole Nitrate 1%] 1 applic TOPICAL DAILY 12/26/19 [History] Ferrous Gluconate 240 mg PO DAILY 12/26/19 [History] Guaifenesin/Dextromethorphan [Coricidin Hbp Chest Sai-Cough] 1 tab PO Q6H PRN 12/26/19 [History] Ibuprofen [Motrin] 800 mg PO Q8H PRN 12/26/19 [History] Isosorbide Mononitrate ER [Imdur] 60 mg PO DAILY 12/26/19 [History] Loperamide HCl [Imodium A-D] 2 mg PO DAILY PRN 12/26/19 [History] Loperamide [Imodium] 1 mg PO DAILY 12/26/19 [History] Losartan-Hctz 50-12.5 mg [Hyzaar 50-12.5] 1 tab PO DAILY 12/26/19 [History] Nitroglycerin Sl Tabs [Nitrostat] 0.4 mg SUBLINGUAL Q5M PRN 12/26/19 [History] Pantoprazole Sodium [Protonix] 40 mg PO DAILY 12/26/19 [History] Rosuvastatin Calcium [Crestor] 20 mg PO DAILY 12/26/19 [History] Tamsulosin [Flomax] 0.4 mg PO DAILY 12/26/19 [History] Turmeric Root Extract [Turmeric] 500 mg PO DAILY 12/26/19 [History] Ubidecarenone [Co Q-10] 100 mg PO DAILY 12/26/19 [History] metFORMIN HCL [Glucophage] 500 mg PO BID 12/26/19 [History] prednisoLONE ACETATE [Pred Forte 1%] 1 drop RIGHT EYE TID 12/26/19 [History] Aspirin 81 mg PO DAILY #30 chewable 12/28/19 [Rx] Metoprolol Tartrate [Lopressor] 12.5 mg PO BID #60 tab 12/28/19 [Rx] Follow up Appointment(s)/Referral(s): Sukumar Santana DO [Primary Care Provider] - 3 Days Patient Instructions/Handouts: *Surgery [facility] - After Heart Catheterization - [employer] Helper Instructions, Heart Attack (DC), Heart Healthy Diet (DC) Discharge Disposition: HOME SELF-CARE
--- NOTE | 2019-12-28 14:00 | ECHOF ---
Referral Reason:heart function MEASUREMENTS -------- HEIGHT: 172.7 cm WEIGHT: 86.2 kg BP: RVIDd: 3.5 cm (< 3.3) IVSd: 1.2 cm (0.6 - 1.1) LVIDd: 4.0 cm (3.9 - 5.3) LVPWd: 1.3 cm (0.6 - 1.1) IVSs: 1.5 cm LVIDs: 3.1 cm LVPWs: 1.3 cm LAESV Index (A-L): 35.12 ml/m Ao Diam: 3.0 cm (2.0 - 3.7) AV Cusp: 1.8 cm (1.5 - 2.6) LA Diam: 4.2 cm (2.7 - 3.8) MV EXCURSION: 14.991 mm (> 18.000) MV EF SLOPE: 80 mm/s (70 - 150) EPSS: 0.1 cm MV E Richi: 0.82 m/s MV DecT: 137 ms MV A Richi: 0.80 m/s MV E/A Ratio: 1.03 AR PHT: 636 ms RAP: 5.00 mmHg RVSP: 17.99 mmHg FINDINGS -------- Sinus rhythm. This was a technically good study. The left ventricular size is normal. There is mild concentric left ventricular hypertrophy. Overa ll left ventricular systolic function is low-normal with, an EF between 50 - 55 %. The right ventricle is normal in size. The left atrium is moderately dilated. LA is moderately dilated 34-39 ml/m2 The right atrial size is normal. There is mild aortic valve sclerosis. There is mild aortic regurgitation. Mild mitral regurgitation is present. Mild tricuspid regurgitation present. Right ventricular systolic pressure is normal at < 35 mmHg. There is no pulmonic regurgitation present. The aortic root size is normal. There is a trivial pericardial effusion present. CONCLUSIONS -------- 1. The left ventricular size is normal. 2. There is mild concentric left ventricular hypertrophy. 3. Overall left ventricular systolic function is low-normal with, an EF between 50 - 55 %. 4. The right ventricle is normal in size. 5. The left atrium is moderately dilated. 6. LA is moderately dilated 34-39 ml/m2 7. The right atrial size is normal. 8. There is mild aortic valve sclerosis. 9. There is mild aortic regurgitation. 10. Mild mitral regurgitation is present. 11. Mild tricuspid regurgitation present. 12. There is a trivial pericardial effusion present. VISION MIXER: Marija Albrecht RDCS
[2019-12-28 14:30] LABS: Hemoglobin A1C 6.4 % (4.0-6.0)
[2019-12-29] MEDS ORDERED: metFORMIN 500 MG TAB PO SCH (21:00)
== END 2019-12-28 14:00 | disposition home or self-care (01) ==
LOC: EC 09:50 → 3NCARDOBS 11:28
PROVIDERS: ADMIT Internal Medicine; ATTEND Internal Medicine
DX: I25.10 Atherosclerotic heart disease of native coronary artery without angina pectoris (principal); I21.4 Non-ST elevation (NSTEMI) myocardial infarction; R07.89 Other chest pain; R68.84 Jaw pain; R06.00 Dyspnea, unspecified; R06.02 Shortness of breath; R94.39 Abnormal result of other cardiovascular function study; R51 Headache; R61 Generalized hyperhidrosis; D72.829 Elevated white blood cell count, unspecified; R79.89 Other specified abnormal findings of blood chemistry; N17.9 Acute kidney failure, unspecified; E83.42 Hypomagnesemia; E11.42 Type 2 diabetes mellitus with diabetic polyneuropathy; I10 Essential (primary) hypertension; E78.5 Hyperlipidemia, unspecified; J45.909 Unspecified asthma, uncomplicated; K21.9 Gastro-esophageal reflux disease without esophagitis; K57.90 Diverticulosis of intestine, part unspecified, without perforation or abscess without bleeding; G20 Parkinson's disease; N40.0 Benign prostatic hyperplasia without lower urinary tract symptoms; D50.9 Iron deficiency anemia, unspecified; Z79.84 Long term (current) use of oral hypoglycemic drugs; E66.9 Obesity, unspecified; Z68.28 Body mass index [BMI] 28.0-28.9, adult; Z87.891 Personal history of nicotine dependence; Z98.890 Other specified postprocedural states; Z85.46 Personal history of malignant neoplasm of prostate; Z92.3 Personal history of irradiation; Z86.69 Personal history of other diseases of the nervous system and sense organs; Z79.899 Other long term (current) drug therapy; Z79.52 Long term (current) use of systemic steroids; Z79.1 Long term (current) use of non-steroidal anti-inflammatories (NSAID); Z88.8 Allergy status to other drugs, medicaments and biological substances; Z91.041 Radiographic dye allergy status; Z90.49 Acquired absence of other specified parts of digestive tract; Z87.19 Personal history of other diseases of the digestive system; Z87.09 Personal history of other diseases of the respiratory system; M17.0 Bilateral primary osteoarthritis of knee; Z83.1 Family history of other infectious and parasitic diseases; Z82.0 Family history of epilepsy and other diseases of the nervous system; Z84.89 Family history of other specified conditions
CPT/HCPCS: 93005 ×2; 96366 ×2; 96367; 96376 ×2; 96365; 96375; 99285; 36415; 93306; 93458; 80061; 80053; 80048; 83735 ×2; 84484; 85025 ×3; 85610; 85730 ×2; 82272; 83036; 71046; 70450; 71275; G0378 ×3; C1769; C1894; J2250; J2060; J1200 ×2; J1644 ×3; J2930 ×2; J2001; J3010; J2270; J3475; Q9967 ×2